=== PATIENT | female | born 1995 | race Caucasian/White ===

== ENCOUNTER 2017-01-25 12:21 | Emergency (ER) | payer BC, OTHER ==
[~2017-01-25] VITALS: Ht 154.9 cm; Wt 57.6 kg
[2017-01-25] MEDS ORDERED: FENTANYL PF 100 MCG/2 ML VIAL. ONE (12:28)
[2017-01-25] MEDS ORDERED: LIDOCAINE 2% 20 ML VIAL. ONE (12:28)
[2017-01-25] MEDS ORDERED: ONDANSETRON PF 4 MG/2 ML VIAL. ONE (12:35)
[2017-01-25] MEDS ORDERED: TETANUS IMMUNE GLOBULIN PF 250 UNIT DISP.SYRIN. VAX IM ONE (13:00)
[2017-01-25] MEDS ORDERED: LIDOCAINE 2% 20 ML VIAL. IJ ONE (13:00)
[2017-01-25] MEDS ORDERED: ONDANSETRON PF 4 MG/2 ML VIAL. IV ONE (13:00)
[2017-01-25] MEDS ORDERED: FENTANYL PF 100 MCG/2 ML VIAL. IV ONE (13:00)
[2017-01-25] MEDS ORDERED: DIPHTH,PERTUSS(ACELL),TET TOX 0.5 ML DISP.SYRIN. VAX IM ONE (13:15)
[2017-01-25] MEDS ORDERED: PIPERACILLIN/TAZOBACTAM 3.375 GM VIAL IV ONE (14:00)
[2017-01-25] MEDS ORDERED: IV NORMAL SALINE 50ML 50 ML ONE (14:00)
[2017-01-25] MEDS ORDERED: PIPERACILLIN/TAZOBACTAM 3.375 GM in IV NORMAL SALINE 50ML 50 ML IV ONE (14:15)
[2017-01-25] MEDS ORDERED: FLUC150T PO (14:19)
[2017-01-25] MEDS ORDERED: AMOX1TAB61 PO (14:19)
[2017-01-25] MEDS ORDERED: IBUP600T16 PO (14:19)
[2017-01-25 14:30] VITALS: BP 134/64
--- NOTE | 2017-01-25 16:34 | ED.ADGEN ---
Past History Past Medical History: Asthma Past Surgical History: No Surgical History Alcohol Use: None Drug Use: None Adult General Chief Complaint Chief Complaint dog bite to face HPI HPI Patient is a 22 year old female who presents with dog bite to the face. The dog that bit her belongs to the parents of patient's boyfriend. The dog is reported utd with rabies vaccine. It occurred just prior to arrival, denies other injury. Pt is unsure of her last tetanus immunization. Review of Systems Review of Systems Constitutional: Denies fever or chills [] Eyes: Denies change in visual acuity, redness, or eye pain [] HENT: Denies nasal congestion or sore throat [] Respiratory: Denies cough or shortness of breath [] Cardiovascular: denies chest pain GI: Denies abdominal pain, nausea, or vomiting : Denies dysuria or hematuria [] Musculoskeletal: Denies back pain or joint pain [] Integument: facial lac Neurologic: Denies headache, focal weakness or sensory changes [] Current Medications Current Medications Current Medications Medications (Trade) Dose Ordered Sig/Ninoska Start Time Stop Time Status Last Admin Dose Admin Diphtheria/ Tetanus/Acell Pertussis 0.5 ml 0.5 ml ONCE ONCE 01/25/17 13:15 01/25/17 13:16 DC 01/25/17 13:57 0.5 ML Fentanyl Citrate (Fentanyl 2ml Vial) 50 mcg 1X ONCE 01/25/17 13:00 01/25/17 13:01 DC 01/25/17 13:00 50 MCG Lidocaine HCl 20 ml 1X ONCE 01/25/17 13:00 01/25/17 13:01 DC Ondansetron HCl (Zofran) 4 mg 1X ONCE 01/25/17 13:00 01/25/17 13:01 DC 01/25/17 13:00 4 MG Piperacillin Sod/ Tazobactam Sod 3.375 gm 3.375 gm STK-MED ONCE 01/25/17 14:00 01/25/17 14:01 DC Piperacillin Sod/ Tazobactam Sod/ Sodium Chloride (Zosyn/Iv Sodium Chloride 0.9% 50ml) 50 ml @ 100 mls/hr 1X ONCE 01/25/17 14:15 01/25/17 14:44 DC 01/25/17 14:12 100 MLS/HR Sodium Chloride (Iv Sodium Chloride 0.9% 50ml) 50 ml @ As Directed STK-MED ONCE 01/25/17 14:00 01/25/17 14:01 DC Tetanus Immune Globulin (Hypertet) 1 ml ONCE ONCE 01/25/17 13:00 01/25/17 13:00 DC Allergies Allergies Allergies Uncoded Allergies Type Severity Reaction Last Updated Verified GUMMY VITAMINS Allergy Intermediate 01/25/17 Physical Exam Physical Exam Constitutional: Well developed, well nourished, crying due to laceration HENT: Normocephalic, pt has upper lip laceration from midline to the left with large flap hanging down, total wound is 2.5 x 3.5 cm with complex laceration, moderate hemostasis, bilateral external ears normal, oropharynx moist,nose normal. no trismus, teeth intact, no internal lacerations appreciated Eyes: PERRLA, EOMI, conjunctiva normal, no discharge. [] Neck: Normal range of motion, no tenderness, supple, no stridor. [] Cardiovascular:Heart rate regular rhythm, no murmur [] Lungs & Thorax: Bilateral breath sounds clear to auscultation [] Abdomen: soft, no tenderness, no masses, no pulsatile masses. [] Skin: Warm, dry, (see above) Back: No tenderness Extremities: No tenderness, no cyanosis, no clubbing, ROM intact, no edema. [] Neurologic: Alert and oriented X 3, normal motor function, normal sensory function, no focal deficits noted. [] Psychologic: Affect normal, judgement normal, mood normal. [ Current Patient Data Vital Signs Vital Signs Date Time Temp Pulse Resp B/P Pulse Ox O2 Delivery O2 Flow Rate FiO2 01/25/17 14:30 81 18 134/64 98 Room Air 01/25/17 12:25 98.8 EKG EKG [] Radiology/Procedures Radiology/Procedures Indication: lip laceration Procedure: The patient was placed in the appropriate position and anesthesia around the 2%lidocaine . The area was then irrigated with copious NS. The laceration was closed with simple interrupted sutures using prolene 6-0 sutures. Total of 12 sutures placed. Edges fairly well approximated. One of the sutures was in the middle of the flap. Total repaired wound length: 2.5+3.5cm = 6cm. The patient tolerated the procedure moderately well. Complications: none.[ Course & Med Decision Making Course & Med Decision Making Pertinent Labs and Imaging studies reviewed. (See chart for details) pt given IV fentanyl, tetanus updated. Using 2% lidocaine, anesthetized, irrigated. Closed. Pt given IV zosyn, will discharge with augmentin. Strict return precautions given if signs of infection noted. Recommend that she have the wound checked in 3 days, sutures removed in 5 days. She voiced understanding. Final Impression Final Impression Complicated lip laceration.[] Problems: Dragon Disclaimer Dragon Disclaimer This electronic medical record was generated, in whole or in part, using a voice recognition dictation system. ALEXANDREA CAREY MD Jan 25, 2017 16:34
== END 2017-01-25 14:40 | disposition home or self-care (01) ==
LOC: ER 12:26
DX: S01.511A Laceration without foreign body of lip, initial encounter (principal); J45.909 Unspecified asthma, uncomplicated; Z88.8 Allergy status to other drugs, medicaments and biological substances; W54.0XXA Bitten by dog, initial encounter; Y93.89 Activity, other specified; Y99.8 Other external cause status; Y92.89 Other specified places as the place of occurrence of the external cause
CPT/HCPCS: 12013; 90471; 90715; 96365; 96375; 99284; J2405; J2543; J3010